=== PATIENT | male | born 1950 | race Caucasian/White ===

== ENCOUNTER 2017-12-18 10:14 | Inpatient (IN) ==
[2017-12-18] MEDS ORDERED: SODIUM CHLORIDE 0.45% 1,000 ML IV SCH (11:00)
[2017-12-18] MEDS ORDERED: diphenhydrAMINE CAP 25 MG CAPSULE PO ONE (11:00)
[2017-12-18] MEDS ORDERED: DIAZEPAM 5 MG TABLET PO ONE (11:00)
[2017-12-18] MEDS ORDERED: DIAZEPAM 5 MG TABLET ONE (11:08)
[2017-12-18] MEDS ORDERED: diphenhydrAMINE CAP 25 MG CAPSULE ONE (11:08)
[2017-12-18 11:15] LABS: Basophils % 0.5 % (0.0-0.8); Eosinophils # 0.3 10*3/uL (0.0-0.87); Eosinophils % 3.8 % (0.00-10.9); Hematocrit 44.1 VOL% (42.0-52.0); Immature Granulocytes % 0.5 %; Immature Granulocytes Absolute 0.04 #; Lymphocytes # 1.8 10*3/uL (1.4-4.0); Lymphocytes % 22.1 % (21.2-54.2); Mean Corpuscular HGB Conc 34.7 GM/DL (32-36); Mean Corpuscular Hemoglobin 32 PG (27-34); Mean Corpuscular Volume 93.2 FL (87-102); Mean Platelet Volume 9.9 FL (9.6-12.0); Monocytes # 0.6 10*3/uL (0.11-0.8); Monocytes % 8.1 % (1.7-12.7); Neutrophils # 5.2 10*3/uL (1.4-7.4); Platelet Count 248 T/CUMM (130-400); Red Blood Count 4.73 MC/CUMM (3.8-5.5); Red Cell Distribution Width 11.9 % (9.3-17.3)
[2017-12-18 11:20] LABS: Hemoglobin 15.3 GM/DL (14.0-18.0)
[2017-12-18] MEDS ORDERED: NITROGLYCERIN SL 0.4 MG TABLET SL PRN (12:12)
[2017-12-18 12:14] LABS: Calcium 8.9 MG/DL (8.5-10.1); Osmolality,Calculated 277.7 MOS/KG (273-304); Potassium 4.2 MMOL/L (3.5-5.1)
[2017-12-18] MEDS ORDERED: HEPARIN/NACL 0.9% 2 UNITS/ML 2,000 ML IV ONE (12:30)
[2017-12-18] MEDS ORDERED: fentaNYL 100 MCG/2 ML VIAL ONE (12:30)
[2017-12-18] MEDS ORDERED: LIDOCAINE 1% 20 ML VIAL ONE (12:30)
[2017-12-18] MEDS ORDERED: MIDAZOLAM 2 MG/2 ML VIAL ONE ×2 (12:30→12:57)
[2017-12-18] MEDS ORDERED: HEPARIN/NACL 0.9% 2 UNITS/ML 1,000 ML IV ONE (12:58)
[2017-12-18] MEDS ORDERED: HEPARIN 5,000 UNIT/1 ML VIAL ONE ×2 (12:58→13:13)
[2017-12-18] MEDS ORDERED: diphenhydrAMINE 50 MG/1 ML VIAL ONE (13:11)
[2017-12-18] MEDS ORDERED: HYDROmorphone 2 MG/1 ML VIAL ONE ×2 (13:47→14:52)
[2017-12-18] MEDS ORDERED: TICAGRELOR 90 MG TABLET ONE (14:16)
[2017-12-18] MEDS ORDERED: ACETAMINOPHEN 325 MG TABLET PO PRN (14:17)
[2017-12-18] MEDS ORDERED: SODIUM BICARB INJ 50 MEQ in SODIUM CHLORIDE 0.45% 1,000 ML IV SCH (14:20)
[2017-12-18] MEDS ORDERED: HYDROmorphone 2 MG/1 ML VIAL IV ONE (15:00)
[2017-12-18] MEDS ORDERED: SODIUM CHLORIDE 0.9% 250 ML IV ONE (17:05)
[2017-12-18] MEDS ORDERED: PHENYLEPHRINE DRIP 40 MG/250 ML PREMIX IV ONE (20:20)
[2017-12-18] MEDS ORDERED: PHENYLEPHRINE DRIP 40 MG/250 ML PREMIX IV SCH (20:30)
[2017-12-18 20:32] LABS: Hematocrit 38.2 VOL% (42.0-52.0); Hemoglobin 12.9 GM/DL (14.0-18.0)
[2017-12-18] MEDS ORDERED: ROSUVASTATIN 20 MG TABLET PO SCH (21:00)
[2017-12-18] MEDS: CARVEDILOL 3.125 MG TABLET PO SCH (21:16)
[2017-12-18] MEDS: TICAGRELOR 90 MG TABLET PO SCH (21:16)
[2017-12-19 05:20] LABS: Basophils # 0.1 10*3/uL (0.0-0.2); Basophils % 0.5 % (0.0-0.8); Eosinophils # 0.5 10*3/uL (0.0-0.87); Eosinophils % 4.4 % (0.00-10.9); Hematocrit 37.2 VOL% (42.0-52.0); Hemoglobin 12.9 GM/DL (14.0-18.0); Immature Granulocytes % 0.4 %; Immature Granulocytes Absolute 0.04 #; Lymphocytes # 2.1 10*3/uL (1.4-4.0); Lymphocytes % 19.9 % (21.2-54.2); Mean Corpuscular HGB Conc 34.7 GM/DL (32-36); Mean Corpuscular Hemoglobin 32 PG (27-34); Mean Corpuscular Volume 93.5 FL (87-102); Mean Platelet Volume 10.6 FL (9.6-12.0); Monocytes # 0.8 10*3/uL (0.11-0.8); Monocytes % 7.5 % (1.7-12.7); Neutrophils # 7.1 10*3/uL (1.4-7.4); Neutrophils % 67.3 % (38.7-73.9); Platelet Count 241 T/CUMM (130-400); Red Blood Count 3.98 MC/CUMM (3.8-5.5); White Blood Count 10.5 T/CUMM (4-12)
[2017-12-19 05:53] LABS: Calcium 8.2 MG/DL (8.5-10.1); Osmolality,Calculated 278.5 MOS/KG (273-304); Potassium 4.1 MMOL/L (3.5-5.1)
[2017-12-19 06:21] LABS: Troponin I Only 0.144 NG/ML (0.00-0.045)
[2017-12-19] MEDS ORDERED: ASPIRIN EC 81 MG TABLET PO SCH (09:00)
[2017-12-19] MEDS ORDERED: FUROSEMIDE 40 MG TABLET PO SCH (09:00)
[2017-12-19] MEDS ORDERED: POTASSIUM CHLORIDE 20 MEQ TABLET PO SCH (09:00)
[2017-12-19 10:40] VITALS: BP 84/57
[2017-12-19] MEDS: TICAGRELOR 90 MG TABLET PO SCH (10:51)
[2017-12-19] MEDS: CARVEDILOL 3.125 MG TABLET PO SCH (10:52)
== END 2017-12-19 13:54 | disposition home or self-care (01) | DRG 247 ==
LOC: N.CL 10:14 → N.ICU 14:16 → N.CL 12-19 13:54 → N.ICU 12-19 14:23
PROVIDERS: ADMIT Internal Medicine Cardiovascular Disease; ATTEND Internal Medicine Cardiovascular Disease

== ENCOUNTER 2020-08-21 15:35 | Inpatient (IN) ==
[2020-08-21] MEDS ORDERED: SODIUM CHLORIDE 0.9% 1,000 ML IV STA (17:22)
[2020-08-21 17:31] LABS: Basophils % 0.2 % (0.0-0.8); Eosinophils # 0.3 10*3/uL (0.0-0.87); Eosinophils % 2.8 % (0.00-10.9); Hematocrit 39.2 VOL% (42.0-52.0); Hemoglobin 12.9 GM/DL (14.0-18.0); Immature Granulocytes % 0.5 %; Immature Granulocytes Absolute 0.05 #; Lymphocytes # 1.7 10*3/uL (1.4-4.0); Lymphocytes % 17.1 % (21.2-54.2); Mean Corpuscular HGB Conc 32.9 GM/DL (32-36); Mean Corpuscular Volume 97.3 FL (87-102); Mean Platelet Volume 10.8 FL (9.6-12.0); Monocytes % 11.4 % (1.7-12.7); Platelet Count 189 T/CUMM (130-400); Red Blood Count 4.03 MC/CUMM (3.8-5.5); Red Cell Distribution Width 13.1 % (9.3-17.3); White Blood Count 10.2 T/CUMM (4-12)
[2020-08-21 17:40] LABS: INR 1.1; PT Patient Result 11.7 SECS (9.8-11.9); Partial Thromboplastin Time 29.1 SECS (23.9-33.8)
[2020-08-21 18:14] LABS: Albumin 2.8 G/DL (3.4-5.0); Bilirubin,Total 0.9 MG/DL (0.2-1.0); Osmolality,Calculated 271.8 MOS/KG (273-304); Total Protein 6.3 G/DL (6.4-8.3)
[2020-08-21 18:15] LABS: Ferritin 823.5 ng/ml (26-388)
[2020-08-21 18:54] LABS: Bacteria,Urine Occasional /HPF (Few); Bilirubin,Urine Negative (Negative); Blood, Urine Small mg/dL (Negative); Glucose,Urine (UA) Negative (Negative); Ketones,Urine 5 mg/dL (Negative); Mucus,Urine Occasional /LPF (Occasional); Nitrite,Urine Negative (Negative); Protein,Urine 30 MG/DL; RBC,Urine 2 /HPF (0-4); Urine Appearance CLEAR (Clear); Urine Color Yellow (Yellow); Urine Specific Gravity 1.021 (1.001-1.035); Urine Urobilinogen < 2.0 EU/DL (0.2-1.0); WBC,Urine 4 /HPF (0-6)
[2020-08-21] MEDS ORDERED: DEXTROSE 50% 25 GM/50 ML VIAL IV PRN (20:51)
[2020-08-21] MEDS ORDERED: GLUCAGON 1 MG VIAL IM PRN (20:51)
[2020-08-21] MEDS ORDERED: ONDANSETRON 4 MG/2 ML VIAL IV PRN (20:51)
[2020-08-21] MEDS ORDERED: CETIRIZINE 10 MG TABLET PO PRN (20:57)
[2020-08-21] MEDS ORDERED: guaiFENesin 200 MG/10 ML UDCUP PO PRN (20:57)
[2020-08-21] MEDS: PIPERACILLIN/TAZOBACTAM 3,375 MG in SODIUM CHLORIDE 0.9% 100 ML IV SCH (23:40)
[2020-08-21] MEDS: ENOXAPARIN 40 MG/0.4 ML SYRINGE SUBCUT SCH (23:41)
[2020-08-21] MEDS: SODIUM CHLORIDE 0.9% 1,000 ML IV SCH (23:42)
[2020-08-22 06:00] LABS: Basophils % 0.2 % (0.0-0.8); Eosinophils # 0.3 10*3/uL (0.0-0.87); Eosinophils % 3.3 % (0.00-10.9); Hematocrit 34.9 VOL% (42.0-52.0); Hemoglobin 11.7 GM/DL (14.0-18.0); Immature Granulocytes % 0.5 %; Immature Granulocytes Absolute 0.04 #; Lymphocytes # 1.3 10*3/uL (1.4-4.0); Lymphocytes % 14.4 % (21.2-54.2); Mean Corpuscular HGB Conc 33.5 GM/DL (32-36); Mean Corpuscular Volume 95.9 FL (87-102); Monocytes % 9.8 % (1.7-12.7); Neutrophils % 71.8 % (38.7-73.9); Platelet Count 168 T/CUMM (130-400); Red Blood Count 3.64 MC/CUMM (3.8-5.5); Red Cell Distribution Width 12.9 % (9.3-17.3); White Blood Count 8.8 T/CUMM (4-12)
[2020-08-22] MEDS ORDERED: PIPERACILLIN/TAZOBACTAM 3,375 MG VIAL IV ONE (06:05)
[2020-08-22] MEDS ORDERED: SODIUM CHLORIDE 0.9% 100 ML IV ONE (06:06)
[2020-08-22] MEDS: PIPERACILLIN/TAZOBACTAM 3,375 MG in SODIUM CHLORIDE 0.9% 100 ML IV SCH ×2 (06:12→13:16)
[2020-08-22 06:28] LABS: Albumin 2.2 G/DL (3.4-5.0); Bilirubin,Total 1.8 MG/DL (0.2-1.0); Calcium 8.1 MG/DL (8.5-10.1); Osmolality,Calculated 272.8 MOS/KG (273-304); Risk Ratio 6.54
[2020-08-22] MEDS ORDERED: ZINC SULFATE 220 MG CAPSULE PO SCH (09:00)
[2020-08-22] MEDS ORDERED: PANTOPRAZOLE 40 MG TABLET PO ONE (10:25)
[2020-08-22] MEDS ORDERED: DEXAMETHASONE 4 MG/1 ML VIAL ONE (10:25)
[2020-08-22] MEDS: PANTOPRAZOLE 40 MG TABLET PO SCH (10:30)
[2020-08-22] MEDS: DEXAMETHASONE 4 MG/1 ML VIAL IV SCH (10:30)
[2020-08-22] MEDS: ASCORBIC ACID 500 MG TABLET PO SCH ×2 (10:59→20:43)
[2020-08-22] MEDS ORDERED: NITROGLYCERIN SL 0.4 MG TABLET SL PRN (11:42)
[2020-08-22] MEDS: SODIUM CHLORIDE 0.9% 1,000 ML IV SCH (12:55)
[2020-08-22] MEDS: LOSARTAN 25 MG TABLET PO SCH (13:14)
[2020-08-22] MEDS: CLOPIDOGREL 75 MG TABLET PO SCH (13:14)
[2020-08-22] MEDS: ASPIRIN EC 81 MG TABLET PO SCH (13:15)
[2020-08-22] MEDS: carvediloL 3.125 MG TABLET PO SCH ×2 (13:15→20:43)
[2020-08-22] MEDS ORDERED: AZITHROMYCIN INJ 500 MG in SODIUM CHLORIDE 0.9% 250 ML IV SCH (14:30)
[2020-08-22] MEDS: cefTRIAXone 1,000 MG in SYRINGE 1 EACH IV SCH (14:41)
[2020-08-22] MEDS: ENOXAPARIN 40 MG/0.4 ML SYRINGE SUBCUT SCH (20:43)
[2020-08-22] MEDS ORDERED: ROSUVASTATIN 20 MG TABLET PO SCH (21:00)
[2020-08-23] MEDS: SODIUM CHLORIDE 0.9% 1,000 ML IV SCH (00:30)
[2020-08-23] MEDS: DEXAMETHASONE 4 MG/1 ML VIAL IV SCH (08:42)
[2020-08-23] MEDS: cefTRIAXone 1,000 MG in SYRINGE 1 EACH IV SCH (08:42)
[2020-08-23] MEDS: PANTOPRAZOLE 40 MG TABLET PO SCH (08:43)
[2020-08-23] MEDS: ASPIRIN EC 81 MG TABLET PO SCH (08:43)
[2020-08-23] MEDS: ASCORBIC ACID 500 MG TABLET PO SCH (08:43)
[2020-08-23] MEDS: CLOPIDOGREL 75 MG TABLET PO SCH (08:43)
[2020-08-23] MEDS: LOSARTAN 25 MG TABLET PO SCH (08:44)
[2020-08-23] MEDS: carvediloL 3.125 MG TABLET PO SCH (08:44)
[2020-08-23] MEDS ORDERED: AZITHROMYCIN 250 MG TABLET PO SCH (09:00)
[2020-08-23 11:38] VITALS: BP 114/77
== END 2020-08-23 15:15 | disposition home or self-care (01) | DRG 194 ==
LOC: N.ED 15:35 → N.EDINP 20:50 → N.5E 08-22 12:46
PROVIDERS: ADMIT Internal Medicine Geriatric Medicine; ATTEND Internal Medicine Geriatric Medicine